=== PATIENT | female | born 1975 | race Caucasian/White ===

== ENCOUNTER 2023-02-26 19:11 | Emergency (ER) | payer BC, OTHER ==
[~2023-02-26] VITALS: Ht 177.8 cm; Wt 63.6 kg
[~2023-02-26 19:11] MED LIST: OMEP20TA44; VENL1TAB96
[2023-02-26 21:15] LABS: Urine Bacteria FEW /hpf (None Seen); Urine Blood Negative /uL (Negative); Urine Clarity Clear (Clear); Urine Color Colorless (Yellow); Urine Protein, UAD Negative (Negative); Urine Specific Gravity 1.002 (1.001-1.035); Urine Urobilinogen Normal (Negative); Urine WBC <1 /hpf (0 - 5)
[2023-02-26 23:14] LABS: Basophils # (auto) 0.1 10 ^3/uL (0-0.2); Basophils % (auto) 0.9 % (0.0-2.0); Eosinophils # (auto) 0.1 10 ^3/uL (0-0.8); Eosinophils % (auto) 1.9 % (0.0-7.0); Hematocrit 41.5 % (36.0-46.0); Hemoglobin 13.8 g/dL (12.2-16.2); Lymphocytes # (auto) 1.8 10 ^3/uL (0.4-5.4); Mean Corpuscular Hemoglobin 30.7 pg (28.0-32.0); Mean Corpuscular Hgb Conc. 33.3 g/dL (32.0-36.0); Mean Corpuscular Volume 92.1 fL (80.0-100.0); Monocytes # (auto) 0.5 10 ^3/uL (0-1.3); Neutrophils % (auto) 62.2 % (37.0-80.0); Nucleated Red Blood Cells % 0.1 %; Red Blood Cells 4.51 10^6/uL (4.0-5.20); Red Cell Distribution Width 17.5 % (11.8-14.3); White Blood Cell 6.5 10^3/uL (4.4-10.8)
[2023-02-26 23:30] LABS: Alanine Aminotransferase 10 U/L (7-40); Albumin 3.8 g/dL (3.2-4.8); Alkaline Phosphatase 56 U/L (46-116); Anion Gap 7 (5-15); Aspartate Aminotransferase 20 U/L (13-40); Blood Alcohol 3.6 mg/dL (<10); Calcium 7.9 mg/dL (8.5-10.1); Carbon Dioxide 25 mmol/L (20-30); Chloride 106 mmol/L (98-107); Glucose 92 mg/dL (74-106); Potassium 3.7 mmol/L (3.5-5.1); Sodium 138 mmol/L (136-145)
[2023-02-26 23:31] LABS: Bilirubin, Total 0.2 mg/dL (0.2-1.0)
[2023-02-26 23:36] LABS: INR 1.01 (0.9-1.15); Partial Thromboplastin Time 29.7 SEC (24.5-34.5); Prothrombin Time 10.6 sec (9.3-11.8)
[2023-02-26 23:43] LABS: BUN/Creatinine Ratio 9.6 (10.0-20.0); Beta HCG, Quantitative 0.6 mIU/mL (1.5-4.2); Blood Urea Nitrogen < 5 mg/dL (9-23)
[2023-02-27 01:59] LABS: Amphetamine Screen, Urine Neg (NEGATIVE); Barbiturate Scree,Urine Neg (NEGATIVE); Benzodiazephine Screen, Urine Neg (NEGATIVE); Cocaine Screen, Urine Neg (NEGATIVE); Opiate Scree,Urine Neg (NEGATIVE); Phencyclidine Screen, Urine Neg (NEGATIVE)
[2023-02-27 02:00] LABS: Cannabinoid Screen, Urine Neg (NEGATIVE)
[2023-02-27 02:15] LABS: Lipase 41 U/L (12-53)
[2023-02-27 02:20] LABS: Thyroid Stimulating Hormone 2.88 uIU/mL (0.358-3.74)
[2023-02-27 03:00] VITALS: BP 122/69; PULSE 64; RESP 14; TEMP 97.6; O2SAT 100
== END 2023-02-27 03:03 | disposition home or self-care (01) ==
LOC: ER 19:11 → EDBD 19:11 → ER 02-27 03:03
DX: R55 Syncope and collapse (principal); R91.1 Solitary pulmonary nodule; E83.51 Hypocalcemia; R10.2 Pelvic and perineal pain; Z90.89 Acquired absence of other organs; Z88.6 Allergy status to analgesic agent; R94.31 Abnormal electrocardiogram [ECG] [EKG]
CPT/HCPCS: 36415; 71045; 80053; 80307; 80320; 81001; 82010; 83690; 83735; 83880; 84443; 84484; 84702; 85025; 85610; 85730; 93005